=== PATIENT | female | born 1980 | race Caucasian/White ===

== ENCOUNTER 2018-01-13 22:55 | Emergency (ER) | payer OTHER ==
[~2018-01-13] VITALS: Ht 162.6 cm; Wt 117.9 kg
[2018-01-13 23:26] VITALS: BP 152/90
[2018-01-13] MEDS ORDERED: KETOROLAC TROMETHAMINE 30 MG/ML VIAL IV STA (23:27)
[2018-01-13] MEDS ORDERED: DIAZEPAM 5 MG TAB PO ONE (23:30)
== END 2018-01-14 00:03 | disposition home or self-care (01) ==
LOC: ER 22:55
DX: M54.2 Cervicalgia (principal); S16.1XXA Strain of muscle, fascia and tendon at neck level, initial encounter; M43.6 Torticollis
CPT/HCPCS: 96372; 99283; J1885